=== PATIENT | female | born 1990 | race Caucasian/White ===

== ENCOUNTER 2016-12-05 11:21 | Emergency (ER) | payer MEDICAID ==
[~2016-12-05] VITALS: Ht 157.5 cm; Wt 58.0 kg
[~2016-12-05 11:21] MED LIST: PREN-29 PO
[2016-12-05 11:25] VITALS: Ht 157.5 cm; Wt 58.0 kg
--- NOTE | 2016-12-05 13:16 | ERA ---
ER Documentation Chief Complaint Date/Time DATE: 12/05/16 TIME: 13:12 Chief Complaint LEFT EYE REDNESS HPI This is an otherwise healthy 26-year-old Faroese-speaking female who presents with a chief complaint of left eye a discomfort described as mildly pruritic without history of discharge. Denies contacts, foreign body sensation, eye pain , photophobia, known foreign body history, history of glaucoma, decreased vision , headache, or fever. ROS All systems reviewed and are negative except as per history of present illness. Medications Home Meds Reported Medications Vit-Fe Fumarate-FA* (Natan Tablet*) 1 Tab Tablet, 1 TAB PO DAILY, TAB 10/07/14 Allergies Allergies: Coded Allergies: No Known Allergy (Unverified , 10/07/14) PMhx/Soc History of Surgery: Yes () Anesthesia Reaction: No Hx Neurological Disorder: No Hx Respiratory Disorders: No Hx Cardiac Disorders: No Hx Psychiatric Problems: No Hx Miscellaneous Medical Probl: No Hx Alcohol Use: No Hx Substance Use: No Hx Tobacco Use: No Smoking Status: Never smoker Physical Exam Vitals Vital Signs Date Time Temp Pulse Resp B/P Pulse Ox O2 Delivery O2 Flow Rate FiO2 12/05/16 11:25 98.1 79 18 110/77 99 Physical Exam Const: Healthy-appearing. Well-nourished. Well-developed. No acute distress. Eyes: Mildly injected left sclera without discharge noted. Right eye appearance unremarkable. EOMI and EMMA bilaterally. Neur: Neurovascularly intact bilaterally. Psych: Active and alert. Normal Mood and Affect. Oriented x3. Head: Normocephalic, Atraumatic. Ears: Normal External Ears, EACs clear, TM normal bilaterally without erythema. Nose: Normal nose without discharge, septal deviation, or sinus tenderness. Oral: No oral edema visualized. Mucous membranes moist and pink. Neck: No cervical lymphadenopathy, masses or goiter palpated. Full range of motion. Supple. Trachea midline. ~ No meningismus. Pulm: Good air movement in upper and lower respiratory tracts. No dyspnea, stridor, tripoding or drooling. Clear to auscultation bilaterally. Cardio: Regular rate and rhythm; No murmurs, gallops or rubs auscultated. No JVD grossly observed. Radial and posterior tibial pulses 2+ bilaterally. No cyanosis. Capillary refill less than 2 seconds. Abd: Soft, non tender, non distended. No guarding, masses. Normal bowel sounds. No McBurney's point tenderness. MS: Normal motor strength, normal tone with gross examination. Skin: No petechiae or rashes. No ulcer, induration, jaundice. Good turgor. Back: No midline, flank or CVA tenderness. Ext: No cyanosis, edema or palpable cord. Normal movement of all extremities grossly observed. Procedures/MDM Patient is being worked up and evaluated for a pruritic, mildly painful, acute red left eye as described in the history and physical exam. My current differential includes, but is not limited to, the following: conjunctivitis, uveitis, keratitis, scleritis, dacryocystitis, corneal foreign body, corneal ulcer, etc.Two drops of proparacaine were used in the affected eye. Patient's physical exam showed left preauricular lymphadenopathy. The current most likely diagnosis is viral versus bacterial conjunctivitis, thus the patient's treatment plan will include antibiotics for possible bacterial infection. Visual acuity was measured before and after the procedure and remained unchanged. At this time I have very little suspicion for acute glaucoma, corneal ulcer, keratitis, uveitis, or hemorrhage. I have spoke with the patient regarding their condition and future management. They have verbally responded that they understand their status and treatment plan. The patients vitals are stable, and their current condition is appropriate for discharge. The patient will be given discharge instructions with return precautions. Discharge medications: 325 mg acetaminophen p.o. as needed, erythromycin ophthalmologic drops. Departure Diagnosis: Primary Impression: Viral conjunctivitis of left eye Additional Impression: Bacterial conjunctivitis of left eye Condition: Stable Additional Instructions: Petty un seguimiento con vivas PCP dentro de los prximos 1-3 strauss para miguel evaluaci n ms completa y miguel posible derivacin a un especialista. Devuelva el departamento de emergencia inmediatamente si los sntomas empeoran o cambian. Si tiene alguna pregunta con respecto a los medicamentos, consulte con vivas farmac utico o con nosotros antes de salir. Si se producen reacciones adversas mientras grace brianda medicamentos, suspenda el tratamiento y regrese inmediatamente al servicio de urgencias. [place] brianda medicamentos segn las indicaciones y complete el curso completo del tratamiento. SHARON LAGOS PA-C Dec 05, 2016 13:16
[2016-12-05] MEDS ORDERED: ERYTOPOI BOTH EYES (13:18)
[2016-12-05] MEDS ORDERED: ACET325T33 PO (13:18)
== END 2016-12-05 13:40 | disposition home or self-care (01) ==
LOC: FTE 11:21
DX: B30.9 Viral conjunctivitis, unspecified (principal); H10.022 Other mucopurulent conjunctivitis, left eye
CPT/HCPCS: 99283

== ENCOUNTER 2016-12-07 13:00 | Emergency (ER) | payer MEDICAID ==
[~2016-12-07] VITALS: Wt 45.5 kg
[~2016-12-07 13:00] MED LIST changes: +ACET325T33 PO; +ERYTOPOI BOTH EYES
[2016-12-07] MEDS ORDERED: ACETAMINOPHEN 500 MG TAB PO STA (14:01)
--- NOTE | 2016-12-07 14:01 | ERD ---
ER Documentation Chief Complaint Date/Time DATE: 12/07/16 TIME: 13:51 Chief Complaint BILAT EAR PAIN/SORE THROAT/HEADACHE/EYE PAIN/FEVER X3D, TOOK TYLENOL AT HS HPI 26-year-old female presents emergency department for multiple complaints including headache, bilateral ear pain, sore throat, fever. Symptoms been going on and off for 3 days. Took Tylenol last night. Denies that this is the worst headache of her life, loss of consciousness, dizziness, blurry vision, changes in vision, photophobia, facial pain, difficulty swallowing, neck pain, shoulder pain, chest pain, cough, hemoptysis, abdominal pain, back pain, loss of appetite, nausea, vomiting, hematochezia, diarrhea, constipation, urinary symptoms, , the possibility of being , bladder and bowel incontinences, extremity weakness, extremity tenderness, numbness or tingling sensation, difficulty walking, recent travel, recent exposure to illness, recent antibiotic use in the last 3 months. A0. LMP: November 03, 2016. No known drug allergies. No past medical history. Surgical history of 1. Does not take any prescription medication at home. Social history: Not working at this time. Denies smoking, use of alcohol, use of illegal drugs. ROS All systems reviewed and are negative except as per history of present illness. Medications Home Meds Active Scripts Erythromycin* (Erythromycin* Ophthalmic) 1 Applic Oint, 1 APPLIC BOTH EYES QID for 7 Days, EA Prov:SHARON LAGOS PA-C 12/05/16 Acetaminophen* (Tylenol*) 325 Mg Tablet, 1 TAB PO Q6 Y for PAIN AND OR ELEVATED TEMP, #20 TAB Prov:SHARON LAGOS PA-C 12/05/16 Reported Medications Vit-Fe Fumarate-FA* (Natan Tablet*) 1 Tab Tablet, 1 TAB PO DAILY, TAB 10/07/14 Allergies Allergies: Coded Allergies: No Known Allergy (Unverified , 12/07/16) PMhx/Soc History of Surgery: Yes () Anesthesia Reaction: No Hx Neurological Disorder: No Hx Respiratory Disorders: No Hx Cardiac Disorders: No Hx Psychiatric Problems: No Hx Miscellaneous Medical Probl: No Hx Alcohol Use: No Hx Substance Use: No Hx Tobacco Use: No Smoking Status: Never smoker Physical Exam Vitals Vital Signs Date Time Temp Pulse Resp B/P Pulse Ox O2 Delivery O2 Flow Rate FiO2 12/07/16 15:15 98.6 89 14 105/55 100 Room Air 12/07/16 13:06 103.4 103 20 111/65 99 Physical Exam CONSTITUTIONAL: Well-appearing; well-nourished; in no apparent distress. HEAD: Normocephalic; atraumatic. EYES: Conjunctiva clear, sclera non-icteric, EOM intact. PERRLA. No pain in eye movement. Extraocular movement of her eyes is within normal limits. Ears: Left ear: Hearing intact. EACs clear, TM is erythematous. No signs of effusion. No signs of effusion. No obstructions, no erythema, no discharges Right ear: Hearing intact. EACs clear, TM is erythematous. No obstructions, no erythema, no discharges Nose: No obstructions. No polyps. No external lesions. Congestion. No external lesions, septum and turbinates normal. No rhinorrhea. No discharges. Frontal sinus is tender to palpation. Maxillary sinus is tender to palpation. MOUTH: Moist mucous membranes, no lesion, no obstructions, no vesicles, no thrush, patent airway Throat: Uvula in midline. Right tonsil is +2 with erythema, no exudate. Left tonsil is +2 with erythema, no exudate. Tolerating secretions well. Good gag reflex. Patent airway. Speaks full and clear sentences. Neck: Supple, without lesions, bruits, or adenopathy. No mass. Thyroid non- enlarged and non-tender to palpation. Good and full range of motion of neck and spine Without limitation and discomfort/pain. CHEST: Symmetrical chest. Respirations even and not labored. No retractions noted. CARDIOVASCULAR: Normal S1, S2. RRR. No murmurs, gallops. RESPIRATORY: Normal chest excursion with respiration; breath sounds clear and equal bilaterally; no wheezes, rhonchi, or rales. Breathing even and unlabored. Speaking in clear, full, and complete sentences w/ ease. ABDOMEN: Normal bowel sounds normal. Soft, round, non-distended, non-guarding, no tenderness, no rebound, no organomegaly, no masses, no pulsating abdominal mass. No hernia. No peritoneal signs. : No CVA tenderness. BACK: Symmetrical shoulder. Spine is midline without deformity, tenderness. No evidence of trauma or deformity. PELVIS: Stable pelvis. No evidence of trauma or deformity. MUSCULOSKELETAL: Normal gait and station. No misalignment, asymmetry, crepitation, defects, tenderness, masses, effusions, decreased range of motion, instability, atrophy or abnormal strength or tone in the head, neck, spine, ribs , pelvis or extremities. No calf tenderness. NEUROVASCULAR: Distal pulses are present. Pedal pulse are present, equal, and normal. Capillary refills are < 2 seconds. NEUROLOGIC: Alert and oriented x4. Speaks full and clear sentences. Cranial Nerves II-XII normal. Sensation to pain, touch, and proprioception normal. Grossly unremarkable. No neurologic deficits. Romberg test is negative. PSYCHOLOGICAL: The patients mood and manner are appropriate. No hallucinations , delusions. Not SI. Not HI. Has the capacity to decide for self SKIN: Normal for age and ethnicity; warm; dry; good turgor; no apparent lesions or exudates. No rashes, hives, discoloration. Intact. Results 24 hrs Current Medications Medications (Trade) Dose Ordered Sig/Roderick Route PRN Reason Start Time Stop Time Status Last Admin Dose Admin Acetaminophen (Tylenol Tab) 1,000 mg ONCE STAT PO 12/07/16 14:01 12/07/16 14:02 DC 12/07/16 14:06 Ibuprofen (Motrin) 600 mg ONCE ONCE PO 12/07/16 14:30 12/07/16 14:31 DC 12/07/16 14:06 Ceftriaxone Sodium (Rocephin) 1 gm ONCE ONCE IM 12/07/16 14:30 12/07/16 14:31 DC 12/07/16 14:32 Procedures/MDM Examination: Please see physical examination. Disease process, medical treatment was explained to the patient and family member. They verbalized understanding and agreed with the diagnostic tests, medical treatment, and follow-up care. Chest x-ray Impression: Unremarkable chest. Treatment: Tylenol. Motrin. Ceftriaxone IM. Re-evaluation: Denies headache, dizziness, blurry vision, neck pain, shoulder pain, chest pain, back pain, abdominal pain, nausea, vomiting. No episode of emesis in the emergency department. Alert and oriented 4. Speaks full and clear sentences. Respirations even and unlabored. Lung sounds clear to auscultation. Active bowel sounds. There is no right upper/right lower/ epigastric/left upper/left lower abdominal tenderness and light and deep palpation. Negative on Rovsings sign. Negative [place]view sign. Able to jump 5 times without developing right-sided abdominal pain. No peritoneal signs. Ambulatory with steady gait. No neurovascular deficits. No neurological deficits. Stated that she feels much better at this time. Consultation: None. Differential diagnosis: Meningitis versus subarachnoid hemorrhage versus sinusitis versus otitis media versus otitis externa versus strep throat versus peritonsillar abscess versus upper respiratory infection Medical decision makin-year-old female presents emergency department for multiple complaints including headache, bilateral ear pain, sore throat, fever. Symptoms been going on and off for 3 days. Took Tylenol last night. Patient' s complaint, patient's history about her complaint, my physical findings, diagnostic test results, my reevaluation are consistent with my final diagnosis of otitis media, sinusitis, tonsillitis, fever. Medications prescribed are the following: Augmentin. Pro-air. Prednisone. Motrin. Tylenol. Patient and family member are made aware of the side effects and adverse reactions of the medications prescribed. Instructed on when to seek emergent and medical attention in case allergic/anaphylactic reactions or severe side effects and or adverse reactions to medications. Patient and family member verbalized understanding. Patient instructed Instructed to follow-up with his PCP in 24-48 hours. Instructed to Call 911 for chest pain, shortness of breath. Advised to come back here in ED as soon as possible for severity of symptoms which includes but not limited to: any new symptoms; shortness of breath/difficulty of breathing; cardiovascular changes; severe gastrointestinal symptoms; signs and symptoms of bleeding and or infection; signs of compartment syndrome/neurovascular changes; neurological changes/deficits. Patient and family member verbalized understanding. Upon discharge, patient is alert and oriented x 4, speaks full and clear sentences, denies pain, has no neurological deficits, has no neurovascular deficits, difficulty of breathing. Breathing even and unlabored. Lung sounds are clear to auscultation. Not in distress. Appears comfortable. Ambulatory with steady gait. Appears satisfied with care provided here in ED. Departure Diagnosis: Primary Impression: Sinusitis Additional Impressions: Acute pharyngitis Tonsillitis Fever Condition: Stable Additional Instructions: Instructed to follow-up with his PCP in 24-48 hours. Instructed to Call 911 for chest pain, shortness of breath. Advised to come back here in ED as soon as possible for severity of symptoms which includes but not limited to: any new symptoms; shortness of breath/difficulty of breathing; cardiovascular changes; severe gastrointestinal symptoms; signs and symptoms of bleeding and or infection; signs of compartment syndrome/neurovascular changes; neurological changes/deficits. Patient and family member verbalized understanding. ADELIA ACOSTA Dec 07, 2016 14:01
[2016-12-07] MEDS ORDERED: CEFTRIAXONE 1 GM INJ IM ONE (14:30)
[2016-12-07] MEDS ORDERED: IBUPROFEN 600 MG TAB PO ONE (14:30)
[2016-12-07 15:15] VITALS: BP 105/55; PULSE 89; RESP 14; TEMP 98.6
--- NOTE | 2016-12-07 15:46 | RADRPT ---
PROCEDURE: XR Chest PA and Lateral CLINICAL INDICATION: Cough, fever TECHNIQUE: PA and Lateral views of the chest were obtained. COMPARISON: None. FINDINGS: Cardiovascular: The cardiovascular silhouette appears unremarkable. Lung Keane: The lung keane appear clear with no nodule, alveolar infiltrate, or interstitial promi nence evident. Pleural Spaces: No pneumothorax is identified and no effusion is evident. Osseous Structures: The osseous structures appear intact. Soft Tissues: The soft tissues appear unremarkable. IMPRESSION: Unremarkable chest. Physician Sergio Date Time Electronically viewed and signed by Physician Sergio on 12/07/2016 15:45 RH/
[2016-12-07] MEDS ORDERED: AMOX1TAB10 PO (15:51)
[2016-12-07] MEDS ORDERED: ALBU8.5H3 INH (15:51)
[2016-12-07] MEDS ORDERED: PRED20TA PO (15:52)
[2016-12-07] MEDS ORDERED: ACET500C5 PO (15:52)
[2016-12-07] MEDS ORDERED: IBUP-1542 PO (15:52)
== END 2016-12-07 16:00 | disposition home or self-care (01) ==
LOC: FTE 13:00
DX: J32.9 Chronic sinusitis, unspecified (principal); J03.90 Acute tonsillitis, unspecified; R50.9 Fever, unspecified
CPT/HCPCS: 71020; 96372; J0696; Z7502; Z7610

== ENCOUNTER 2018-10-26 17:08 | Emergency (ER) | payer MEDICAID ==
[~2018-10-26] VITALS: Ht 157.5 cm; Wt 55.3 kg
[~2018-10-26 17:08] MED LIST changes: +ACET500C5 PO; +ALBU8.5H8 INH; +AMOX1TAB10 PO; +IBUP-1542 PO; +PRED20TA PO
[2018-10-26 17:26] VITALS: Ht 157.5 cm; Wt 55.3 kg
[2018-10-26] MEDS ORDERED: morphine 2 MG INJ IV STA (18:33)
[2018-10-26] MEDS ORDERED: ONDANSETRON 4 MG INJ IV STA (18:33)
--- NOTE | 2018-10-26 18:37 | ERD ---
ER Documentation Chief Complaint Chief Complaint EPIGASTRIC PAIN RADIATING RIGHT UPPER BACJK X3 DAYS, DENIES N/V/D HPI The patient is a 28-year-old female, presenting to the ER because of epigastric abdominal pain for the last 3-day, rating to the back, denies similar symptoms previously, denies fever, chills, neck pain, chest pain, dyspnea, vomiting, dysuria, diarrhea, constipation. She does not smoke nor drink Past medical history: None Past surgical history: ROS All systems reviewed and are negative except as per history of present illness. Medications Home Meds Active Scripts Pantoprazole* (Protonix*) 40 Mg Tablet.dr, 40 MG PO DAILY, #10 TAB Prov:SHARON ALBERTS MD 10/26/18 Ibuprofen* (Motrin*) 600 Mg Tab, 600 MG PO Q8, #30 TAB Prov:MANUELPAULADELIA 12/07/16 Acetaminophen* (Tylophen*) 500 Mg Capsule, 1 CAP PO Q6H PRN for PAIN AND OR ELEVATED TEMP, #20 CAP Prov:LAURIAARONADELIA Kim 12/07/16 Prednisone* (Prednisone*) 20 Mg Tab, 40 MG PO DAILY for 5 Days, TAB Prov:ADELIA ACOSTA 12/07/16 Albuterol Sulfate* (Proair HFA*) 8.5 Gm Hfa.aer.ad, 2 PUFF INH Q4, #1 INHALER Prov:MANUELPAULADELIA 12/07/16 Amoxicillin/Potassium Clav (Amox-Clav 875-125 mg Tablet) 875-125 mg Tab, 1 TAB PO BID for 7 Days, #14 TAB Prov:KARLAADELIA Kim 12/07/16 Erythromycin* (Erythromycin* Ophthalmic) 1 Applic Oint, 1 APPLIC BOTH EYES QID for 7 Days, EA Prov:SHARON LAGOS PA-C 12/05/16 Acetaminophen* (Tylenol*) 325 Mg Tablet, 1 TAB PO Q6 PRN for PAIN AND OR ELEVATED TEMP, #20 TAB Prov:SHARON LAGOS PA-C 12/05/16 Reported Medications Vit-Fe Fumarate-FA* (Natan Tablet*) 1 Tab Tablet, 1 TAB PO DAILY, TAB 10/07/14 Allergies Allergies: Coded Allergies: No Known Allergy (Unverified , 12/07/16) PMhx/Soc History of Surgery: Yes () Anesthesia Reaction: No Hx Neurological Disorder: No Hx Respiratory Disorders: No Hx Cardiac Disorders: No Hx Psychiatric Problems: No Hx Miscellaneous Medical Probl: No Hx Alcohol Use: No Hx Substance Use: No Hx Tobacco Use: No Physical Exam Vitals Vital Signs Date Temp Pulse Resp B/P (MAP) Pulse Ox O2 O2 Flow FiO2 Time Delivery Rate 10/26/18 98.4 78 16 122/76 Room Air 20:26 (91) 10/26/18 16 126/81 100 Room Air 19:56 (96) 10/26/18 98.4 69 18 148/89 100 17:26 (108) Physical Exam Const: No acute distress. Head: Atraumatic. Eyes: Normal Conjunctiva. ENT: Normal External Ears, Nose and Mouth. Neck: Full range of motion. No meningismus. Resp: Clear to auscultation bilaterally. Cardio: Regular rate and rhythm. Abd: Soft, non distended, normal bowel sounds, mild epigastric and right upper quadrant abdominal tenderness, no right lower quadrant/rigidity/rebound/CVA tenderness Skin: No petechiae or rashes. Back: No midline or flank tenderness. Ext: No cyanosis, or edema. Neur: Awake and alert. No focal deficit Psych: Normal Mood and Affect. Result Diagram: 10/26/18184310/26/18 184 Results 24 hrs Laboratory Tests Test 10/26/18 18:44 10/26/18 19:47 10/26/18 19:48 White Blood Count 9.4 10^3/ul Red Blood Count 4.51 10^6/ul Hemoglobin 13.4 g/dl Hematocrit 40.0 % Mean Corpuscular Volume 88.7 fl Mean Corpuscular Hemoglobin 29.7 pg Mean Corpuscular 33.5 g/dl Hemoglobin Concent Red Cell Distribution Width 12.5 % Platelet Count 284 10^3/UL Mean Platelet Volume 11.0 fl Immature Granulocytes % 0.400 % Neutrophils % 62.6 % Lymphocytes % 25.7 % Monocytes % 9.2 % Eosinophils % 1.6 % Basophils % 0.5 % Nucleated Red Blood Cells % 0.0 /100WBC Immature Granulocytes # 0.040 10^3/ul Neutrophils # 5.9 10^3/ul Lymphocytes # 2.4 10^3/ul Monocytes # 0.9 10^3/ul Eosinophils # 0.2 10^3/ul Basophils # 0.1 10^3/ul Nucleated Red Blood Cells # 0.0 10^3/ul Sodium Level 141 mmol/L Potassium Level 4.5 mmol/L Chloride Level 106 mmol/L Carbon Dioxide Level 27 mmol/L Anion Gap 8 Blood Urea Nitrogen 9 mg/dl Creatinine 0.51 mg/dl Est Glomerular Filtrat Rate mL/min > 60 mL/min Glucose Level 118 mg/dl Calcium Level 9.4 mg/dl Total Bilirubin 0.3 mg/dl Direct Bilirubin 0.00 mg/dl Indirect Bilirubin 0.3 mg/dl Aspartate Amino Transf (AST/SGOT) 27 IU/L Alanine 24 IU/L Aminotransferase (ALT/SGPT) Alkaline Phosphatase 102 IU/L Total Protein 8.0 g/dl Albumin 4.6 g/dl Globulin 3.40 g/dl Albumin/Globulin Ratio 1.35 Lipase 67 U/L Bedside Urine pH (LAB) 6.0 Bedside Urine Protein (LAB) Negative Bedside Urine Glucose (UA) Negative Bedside Urine Ketones (LAB) Negative Bedside Urine Blood 2+ Bedside Urine Nitrite (LAB) Negative Bedside Urine Leukocyte Esterase Negative (L POC Beta HCG, Qualitative NEGATIVE Current Medications Medications Dose Sig/Roderick Start Time Status Last (Trade) Ordered Route PRN Stop Time Admin Dose Reason Admin Sodium 1,000 ml @ Q1H ONCE 10/26/18 DC 10/26/18 Chloride 1,000 mls/hr IV 19:00 18:53 10/26/18 19:59 Morphine 2 mg ONCE STAT 10/26/18 DC 10/26/18 Sulfate IV 18:33 18:53 (morphine) 10/26/18 18:35 Ondansetron 4 mg ONCE STAT 10/26/18 DC 10/26/18 HCl (Zofran IV 18:33 18:53 Inj) 10/26/18 18:35 Procedures/MDM [place] [address] Radiology Main Line: [phone] DIAGNOSTIC IMAGING REPORT Patient: JAVIER SANDOVAL : 1990 Age: 28 Sex: F MR #: [id number] DOS: 10/26/18 1833 Ordering MD: SHARON ALBERTS MD Location: E/R Room/Bed: PROCEDURE: US Abdomen (right upper quadrant). CLINICAL INDICATION: Right upper quadrant abdomen pain. TECHNIQUE: Multiple real-time longitudinal and transverse images of the right upper quadrant of the abdomen were acquired utilizing a curved array transducer. Images were reviewed on a high-resolution PACS workstation. COMPARISON: None FINDINGS: The liver is normal in size and normal in echogenicity. There is no focal hepatic lesion. Color Doppler and pulsed Doppler sonography demonstrate normal antegrade flow in the portal vein. The gallbladder is normal with no stones or wall thickening. The bile ducts are normal with the common bile duct measuring 2.8 mm in diameter. The pancreas is not visualized due to overlying bowel gas. No free fluid is present. The right kidney measures 11.1 cm. There is normal echogenicity of the right kidney. There is no perinephric fluid collection. No hydronephrosis, mass, or calculus is seen. IMPRESSION: 1. Pancreas not visualized. 2. Otherwise unremarkable right upper quadrant abdomen ultrasound. RPTAT: QQ .Amador Irving MD MD Date Time Electronically viewed and signed by .Amador Irving MD, MD on 10/26/2018 21:29 .R/ CC: SHARON ALBERTS MD [id number] MEDICAL MAKING DECISION: The patient is a 28-year-old female, presenting with acute epigastric abdominal pain, was treated with 1 L normal saline for clinical dehydration, morphine 2 mg IV for pain and Zofran 4 mg IV for nausea with good response, is stable for outpatient follow-up The differential diagnoses considered include but are not limited to cholelithiasis, cholecystitis, choledocholithiasis, cholangitis, pancreatitis, hepatitis, gastritis, peptic ulcer disease, gastric ulcer, appendicitis, cystitis, diverticulitis, partial small bowel obstruction. Departure Diagnosis: Primary Impression: Epigastric pain Condition: Good Comments She was discharged with Protonix The patient's blood pressure was elevated (>120/80) but appears stable without evidence of hypertension emergency or urgency. The patient was counseled about the risks of hypertension and urged to pursue outpatient monitoring and therapy within a week with their primary care physician. I discussed the findings with the patient. I advised the patient to follow-up with the primary physician in about 1-2 days, sooner if needed and return if any concern. Disclaimer: Inadvertent spelling and grammatical errors are likely due to EHR/dictation software use and do not reflect on the overall quality of patient care. Also, please note that the electronic time recorded on this note does not necessarily reflect the actual time of the patient encounter. SHARON ALBERTS MD October 26, 2018 18:37
[2018-10-26] MEDS ORDERED: SOD CHLORIDE 0.9% 1,000 ML IV ONE (19:00)
[2018-10-26] MEDS ORDERED: PANT40TA3 PO (20:12)
[2018-10-26 20:26] VITALS: BP 122/76; PULSE 78; RESP 16
== END 2018-10-26 20:27 | disposition home or self-care (01) ==
LOC: E/R 17:08
DX: R10.13 Epigastric pain (principal); R10.11 Right upper quadrant pain
CPT/HCPCS: 36415; 76705; 80053; 81003; 81025; 83690; 85025; 96374; 96375; J2270; J2405; J7030; Z7502